=== PATIENT | male | born 1995 | race Caucasian/White ===

== ENCOUNTER 2017-01-05 14:35 | Emergency (ER) | payer BC ==
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
== END 2017-01-05 16:17 | disposition home or self-care (01) ==
LOC: ERS 14:35
DX: S93.401A Sprain of unspecified ligament of right ankle, initial encounter (principal); X50.9XXA Other and unspecified overexertion or strenuous movements or postures, initial encounter

== ENCOUNTER 2018-02-14 05:28 | Emergency (ER) | payer BC ==
[2018-02-14] MEDS ORDERED: Ketorolac Tromethamine 30 MG/ML VIAL ONE (05:41)
[2018-02-14 05:50] LABS: #Eosinphils 0.1 thou/uL (0.0-0.7); #Lymphocytes 1.9 thou/uL (1.20-3.40); #Monocytes 0.7 thou/uL (0.11-0.59); #Neutrophils 6.3 thou/uL (1.40-6.50); %Eosinophils 1.5 % (0.0-10.0); %Lymphocytes 21.3 % (21.0-51.0); %Monocytes 7.9 % (0.0-10.0); %Neutrophils 69.3 % (42.0-75.0); Hemoglobin 15.9 g/dL (14.0-18.0); Mean Corpuscular HGB CONC 34.2 g/dL (32.0-36.0); Mean Corpuscular Hemoglobin 30.7 pg (27.0-31.0); Mean Corpuscular Volume 89.7 fL (78.0-98.0); Mean Platelet Volume 7.4 fL (7.4-10.4); Platelet Count 294 thou/uL (130-400); RBC Distribution Width 12.5 % (11.5-14.5); Red Blood Cell (RBC) Count 5.19 mill/uL (4.70-6.10); White Blood Cell (WBC) Count 9.1 thou/uL (4.8-10.8)
[2018-02-14 06:05] LABS: ALT (SGPT) 29 U/L (8-55); AST (SGOT) 33 U/L (5-34); Alkaline Phosphatase 102 U/L (40-150); Anion Gap 18 mmol/L (10-20); BUN (Urea Nitrogen) 19 mg/dL (8.9-20.6); Bilirubin, Total 0.3 mg/dL (0.2-1.2); Calc. Creatinine Clearance 0 mL/min (70-130); Calcium 9.5 mg/dL (7.8-10.44); Carbon Dioxide 19 mmol/L (22-29); Chloride 112 mmol/L (98-107); Estimated GFR-MDRD 69; Globulin 3.8 g/dL (2.4-3.5); Glucose 98 mg/dL (70-105); Potassium 3.7 mmol/L (3.5-5.1); Protein, Total 8.8 g/dL (6.0-8.3); Sodium 145 mmol/L (136-145)
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
[2018-02-14] MEDS ORDERED: Iopamidol 370 76% 100 ML VIAL ONE (17:12)
== END 2018-02-14 08:45 | disposition home or self-care (01) ==
LOC: ERS 05:28
DX: S22.31XA Fracture of one rib, right side, initial encounter for closed fracture (principal); S01.81XA Laceration without foreign body of other part of head, initial encounter; S20.212A Contusion of left front wall of thorax, initial encounter; S20.211A Contusion of right front wall of thorax, initial encounter; V57.9XXA Unspecified occupant of pick-up truck or van injured in collision with fixed or stationary object in traffic accident, initial encounter; F10.129 Alcohol abuse with intoxication, unspecified
CPT/HCPCS: 12011; 70450; 71045; 71260; 72125; 74176; 74177; 80053; 85025; 93005; 96361; 96374; G0390; J1885

== ENCOUNTER 2018-02-23 10:17 | Outpatient (CLI) | payer BC ==
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
== END 2018-02-23 10:18 | disposition home or self-care (01) ==
LOC: RAD 10:17
PROVIDERS: ATTEND Physician Assistant
DX: S22.32XD Fracture of one rib, left side, subsequent encounter for fracture with routine healing (principal)
CPT/HCPCS: 71046

== ENCOUNTER 2018-03-22 02:50 | Emergency (ER) | payer BC ==
[2018-03-22] MEDS ORDERED: Lorazepam 2 MG/ML VIAL ONE (03:05)
[2018-03-22 03:13] LABS: #Basophils 0.1 thou/uL (0.0-0.2); #Eosinphils 0.1 thou/uL (0.0-0.7); #Neutrophils 5.1 thou/uL (1.40-6.50); %Basophils 1.2 % (0.0-1.0); %Eosinophils 0.9 % (0.0-10.0); %Lymphocytes 24.1 % (21.0-51.0); %Monocytes 12.2 % (0.0-10.0); %Neutrophils 61.6 % (42.0-75.0); Hemoglobin 15.5 g/dL (14.0-18.0); Mean Corpuscular HGB CONC 33.9 g/dL (32.0-36.0); Mean Corpuscular Hemoglobin 31.6 pg (27.0-31.0); Mean Corpuscular Volume 93.5 fL (78.0-98.0); Mean Platelet Volume 8.3 fL (7.4-10.4); Platelet Count 249 thou/uL (130-400); RBC Distribution Width 14.2 % (11.5-14.5); Red Blood Cell (RBC) Count 4.89 mill/uL (4.70-6.10); White Blood Cell (WBC) Count 8.2 thou/uL (4.8-10.8)
[2018-03-22 03:37] LABS: ALT (SGPT) 33 U/L (8-55); AST (SGOT) 24 U/L (5-34); Albumin 4.9 g/dL (3.5-5.0); Alkaline Phosphatase 99 U/L (40-150); Anion Gap 17 mmol/L (10-20); BUN (Urea Nitrogen) 18 mg/dL (8.9-20.6); Bilirubin, Total 0.7 mg/dL (0.2-1.2); Calc. Creatinine Clearance 0 mL/min (70-130); Carbon Dioxide 21 mmol/L (22-29); Chloride 104 mmol/L (98-107); Estimated GFR-MDRD 62; Globulin 3.6 g/dL (2.4-3.5); Glucose 84 mg/dL (70-105); Potassium 3.8 mmol/L (3.5-5.1); Protein, Total 8.5 g/dL (6.0-8.3); Sodium 138 mmol/L (136-145)
[2018-03-22 03:38] LABS: Acetaminophen Less than 6.0 mcg/mL (10.0-30.0); Alcohol Less than 10 mg/dL (Less than 10); CK (CPK) 134 U/L (30-200); Salicylate Less than 8.0 mg/dL (15.0-30.0)
== END 2018-03-22 06:11 | disposition home or self-care (01) ==
LOC: ERS 02:50
DX: F15.10 Other stimulant abuse, uncomplicated (principal)
CPT/HCPCS: 80053; 80307; 82550; 85025; 93005; 96361; 96374; J2060

== ENCOUNTER 2019-02-05 22:43 | Emergency (ER) | payer BC | END 2019-02-05 23:13 | disposition home or self-care (01) | LOC: ERS 22:43 | DX: K60.2 Anal fissure, unspecified (principal); L03.311 Cellulitis of abdominal wall; L03.316 Cellulitis of umbilicus | CPT/HCPCS: 99283 ==

== ENCOUNTER 2021-01-26 17:24 | Emergency (ER) | payer BC, SELFPAY ==
[2021-01-26] MEDS ORDERED: Bacitracin 1 PK ONE (18:00)
[2021-01-26] MEDS ORDERED: Acetaminophen 500 MG TAB ONE (18:00)
[2021-01-26] MEDS ORDERED: Lidocaine 1% w/Epinephrine 1:100K 20 ML VIAL ONE (18:00)
[2021-01-26] MEDS ORDERED: Boostrix 0.5 ML (Tdap) VIAL ONE (18:00)
== END 2021-01-26 18:56 | disposition home or self-care (01) ==
LOC: ERS 17:24
DX: S61.412A Laceration without foreign body of left hand, initial encounter (principal); W26.0XXA Contact with knife, initial encounter
CPT/HCPCS: 12001; 90471; 90715

== ENCOUNTER 2021-02-03 13:52 | Emergency (ER) | payer SELFPAY | END 2021-02-03 15:01 | disposition home or self-care (01) | LOC: ERS 13:52 | DX: Z48.02 Encounter for removal of sutures (principal) ==

== ENCOUNTER 2022-06-16 08:55 | Emergency (ER) | payer OTHER, SELFPAY | END 2022-06-16 11:37 | disposition home or self-care (01) | LOC: ERS 08:55 | DX: S09.90XA Unspecified injury of head, initial encounter (principal); V89.2XXA Person injured in unspecified motor-vehicle accident, traffic, initial encounter | CPT/HCPCS: 70450 ==